=== PATIENT | female | born 1965 | race Caucasian/White ===

== ENCOUNTER 2018-11-27 10:10 | Emergency (ER) | payer OTHER ==
[~2018-11-27] VITALS: Ht 154.9 cm; Wt 72.6 kg
[2018-11-27 10:36] LABS: URINE BLOOD NEGATIVE (Negative); URINE CLARITY CLEAR; URINE COLOR YELLOW; URINE GLUCOSE-RANDOM NEGATIVE (Negative); URINE KETONES 2+ (Negative); URINE LEUKOCYTES-REFLEX NEGATIVE (Negative); URINE NITRITE-REFLEX NEGATIVE (Negative); URINE PROTEIN 1+ (Negative); URINE SPECIFIC GRAVITY 1.025 (1.005-1.030); URINE UROBILINOGEN 0.2 E.U./dl (0.2-1.0)
[2018-11-27 10:40] LABS: ABSOLUTE EOSINOPHILS 0.2 thou/uL (0.0-0.7); ABSOLUTE LYMPHOCYTES 1.5 thou/uL (0.8-5.3); ABSOLUTE MONOCYTES 1.1 thou/uL (0.0-1.2); ABSOLUTE NEUTROPHILS 6.4 thou/uL (1.6-8.1); BASOPHILS 0.5 %; EOSINOPHILS 2.3 %; HEMOGLOBIN 13.6 gm/dL (12.0-15.0); MCH 31.8 pg (26.0-34.0); MCHC 33.9 g/dL (28.0-37.0); MCV 93.7 fL (80.0-100.0); MONOCYTES 11.6 %; NUCLEATED RBCS 0 /100WBC; PLATELET COUNT* 521 thou/uL (150-400); POLYS 69.6 %; RBC 4.27 mil/uL (4.20-5.00); RDW-CV 14.5 % (10.5-14.5); WBC 9.2 thou/uL (4.0-11.0)
[2018-11-27 10:44] LABS: ICTOTEST (BILI CONFIRMATORY) Negative (Negative); URINE BILIRUBIN 2+ (Negative)
[2018-11-27 11:56] LABS: ALBUMIN 2.8 g/dL (3.4-5.0); CALCIUM 8.9 mg/dL (8.5-10.1); POTASSIUM 3.4 mmol/L (3.5-5.1); TOTAL BILIRUBIN 0.3 mg/dL (<0.1-1.0); TOTAL PROTEIN 6.4 g/dL (6.4-8.2)
[2018-11-27 16:39] VITALS: BP 136/93
--- NOTE | 2018-11-28 12:40 | EKG ---
[place] [address] ELECTROCARDIOGRAM REPORT Name: JUSTICE FAIRCHILD [id number] Admission: 11/27/18 Attend Phys: Discharge: 11/27/18 Date of : 67 Report #: [id number] THIS REPORT FOR: //name// [facility] ED Test Date: 2018-11-27 Test Time: 10:32:02 Pat Name: JUSTICE FAIRCHILD Department: Room: Gender: F Waist Presser: Arturo NOE : 1965 Requested By: Margarita Winn Order Number: [id number] MD: Lucio Simmons Measurements Intervals [place] Rate: 75 P: 46 [place]: 129 QRS: 59 QRSD: 102 T: 20 QT: 400 QTc: 447 Interpretive Statements Sinus rhythm No previous ECG available for comparison Electronically Signed On 11-28-2018 12:39:56 FACTORY REPRESENTATIVE by Lcuio Simmons [email or web address] <ELECTRONICALLY SIGNED> By: Lucio Simmons MD, [facility] 11/28/18 1239 1032 1032 Lucio Simmons MD, FACC /EPI
== END 2018-11-27 16:41 | disposition short-term general hospital (02) ==
LOC: M.ERS 10:10
PROVIDERS: Nurse Practitioner Family
DX: R18.8 Other ascites (principal); C80.0 Disseminated malignant neoplasm, unspecified